=== PATIENT | male | born 2000 | race African-American/Black ===

== ENCOUNTER 2020-06-15 23:42 | Inpatient (IN) | payer OTHER ==
[~2020-06-15] VITALS: Ht 182.9 cm; Wt 54.0 kg
[2020-06-16] VITALS (11 sets, daily range): BP systolic 137–164; BP diastolic 66–94
[2020-06-16] MEDS ORDERED: COZAAR 25 MG TA25 M1 PO (00:05)
[2020-06-16] MEDS ORDERED: PROZAC40 MG PO (00:06)
[2020-06-16] MEDS ORDERED: CHLORTHALIDONE25 MG PO (00:06)
[2020-06-16 00:20] LABS: ABSOLUTE NEUTROPHILS 3.6 thou/uL (1.4-8.2); BASOPHILS 1.1 % (0.0-2.0); HEMATOCRIT 49.8 % (42.0-52.0); HEMOGLOBIN 16.3 gm/dL (14.0-18.0); LYMPHOCYTES 36.4 % (24.0-44.0); MCH 30.7 pg (26.0-34.0); MCHC 32.8 g/dL (28.0-37.0); MCV 93.8 fL (80.0-100.0); PLATELET COUNT 259 thou/uL (150-400); POLYS 50.5 % (36.0-66.0); RBC 5.31 mil/uL (4.50-6.00); RDW 13.8 % (10.5-14.5); WBC 7.1 thou/uL (4.0-11.0)
[2020-06-16 00:23] LABS: ANION GAP 11 mmol/L (7-16); BUN 16 mg/dL (7-18); CALCIUM 9.5 mg/dL (8.5-10.1); CHLORIDE 104 mmol/L (98-107); CO2 30 mmol/L (21-32); CREATININE 1.2 mg/dL (0.7-1.3); GLUCOSE 113 mg/dL (74-106); POTASSIUM 3.6 mmol/L (3.5-5.1); SODIUM 145 mmol/L (136-145)
[2020-06-16 00:30] LABS: ALBUMIN 4.7 g/dL (3.4-5.0); SALICYLATE < 2.8 mg/dL (2.8-20.0); SGOT 39 U/L (15-37); SGPT 82 U/L (30-65); TOTAL BILIRUBIN 0.2 mg/dL (0.2-1.0); TOTAL PROTEIN 8.9 g/dL (6.4-8.2)
[2020-06-16 00:52] LABS: URINE BILIRUBIN NEGATIVE (Negative); URINE BLOOD NEGATIVE (Negative); URINE CLARITY CLEAR; URINE COLOR YELLOW; URINE GLUCOSE-RANDOM* NEGATIVE (Negative); URINE KETONES TRACE (Negative); URINE LEUKOCYTES-REFLEX NEGATIVE (Negative); URINE NITRITE-REFLEX NEGATIVE (Negative); URINE PROTEIN (DIPSTICK) NEGATIVE (Negative); URINE SPECIFIC GRAVITY 1.025 (1.005-1.035)
[2020-06-16 00:59] LABS: AMP/METHAMP Negative (Negative); BARBITURATES Negative (Negative); BENZODIAZEPINES Negative (Negative); COCAINE Negative (Negative); METHADONE Negative (Negative); OPIATES Negative (Negative); PCP Negative (Negative)
--- NOTE | 2020-06-16 03:51 | NUR ---
PT NEW ADMIT FORM ED, FOR SUICIDE ATTEMPT AFTER OVERDOSE ON BENADRL. ALERT AND ORIENTED. A LITTLE TACHY ON THE MONITOR BUT VS. DENIES PAIN, CHEST PAINS NAUSEA OR VOMITING. SITTER IN THE ROOM. BED PADDED FOR SEIZURE PRECAUTIONS. CONSENT FORMS SIGNED. ADMISSION COMPLETE. WILL CONTINUE TO MONITOR AND FOLLOW POC.
[2020-06-16 08:08] LABS: ALBUMIN 3.3 g/dL (3.4-5.0); DIRECT BILIRUBIN 0.1 mg/dL (<0.1-0.2); TOTAL BILIRUBIN 0.3 mg/dL (0.2-1.0); TOTAL PROTEIN 6.4 g/dL (6.4-8.2)
--- NOTE | 2020-06-16 11:31 | NUR ---
DISCUSSED WITH BEDSIDE NURSE, CORETTA AND HAS SITTER. CARABALLO TO SEE THURSDAY. NO ANTICIPATED DC OVER THE WEEKEND.
--- NOTE | 2020-06-16 16:54 | NUR ---
PT CARE ASSUMED AT 0700. ASSESSMENTS CHARTED. MEDICATION CHARTED. COVID TESTING COMPLETE. LAC IV. SINUS TACHYCARDIA. UP AT ELBERT. PT IS CALM AND COOPERATIVE. SUICIDE ATTEMPT #25 - 25 MG BENEDRYL OVERDOSE.
[2020-06-17] VITALS (7 sets, daily range): BP systolic 153–164; BP diastolic 75–93
--- NOTE | 2020-06-17 04:23 | NUR ---
NO EVENTS OVERNIGHT. PT VITALS STABLE HR STABLE. DENIES PAIN. REPORTS TO ADHERE TO THE PLAN OF BEING HERE TILL THURSDAY. NO OTHER CONCERNS. SR ON THE MONITOR. WILL CONTINUE WITH POC.
[2020-06-17 13:56] LABS: AMP/METHAMP Negative (Negative); BARBITURATES Negative (Negative); BENZODIAZEPINES Negative (Negative); COCAINE Negative (Negative); METHADONE Negative (Negative); OPIATES Negative (Negative); PCP Negative (Negative)
--- NOTE | 2020-06-17 17:43 | NUR ---
PT CARE ASSUMED AT 0700. ASSESSMENTS CHARTED. MEDICATONS CHARTED. NORMAL SINUS RHYTHM. LAC IV D/C'D; INFILTRATE. LFA IV; NEW PLACEMENT. PT IS CALM AND WELL BEHAVED.
--- NOTE | 2020-06-18 05:06 | NUR ---
ASSESSMENT DOCUMENTED.PT BEEN RESTING IN NO ACUTE DISTRESS.A/OX4.VSS.DENIES ANY SUICIDAL IDEATION.PT ON 1:1 SUPERVISION.NO BEHAVIORAL ISSUES NOTED.POC IS TO SEE PSYCHIATRIST TODAY.WILL CONTINUE TO MONITOR PER POC.
[2020-06-18 07:24] VITALS: BP 133/82
--- NOTE | 2020-06-18 07:40 | EKG ---
[facility] [place] [address] [address] ELECTROCARDIOGRAM REPORT Name: MICHELLELEENA Room #: 208-P ADM IN M.R.#: [id number] Admission: 06/16/20 Attend Phys: Misti Plummer MD Discharge: Date of : 00 Report #: [id number] THIS REPORT FOR: cc: MADAN - No family physician/PCP FAM - No family physician/PCP Huy Carson MD [facility] THIS REPORT FOR: //name// 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: : 2000 Requested By: Kalin Stewart Order Number: [id number] MD: Huy Carson Measurements Intervals [place] Rate: 118 P: 58 AR: 168 QRS: 63 QRSD: 82 T: 248 QT: 375 QTc: 526 Interpretive Statements Sinus tachycardia LVH by voltage Abnormal T, probable ischemia, widespread Anterior ST elevation, probably due to LVH Prolonged QT interval No previous ECG available for comparison Electronically Signed On 06-18-2020 7:40:29 TENNIS PROFESSION[employer] by Huy Carson [email or web address] <ELECTRONICALLY SIGNED> By: Huy Carson MD, FACC 06/18/20 0740 0018 0018 Huy Carson MD, [facility] /EPI
[2020-06-18] MEDS ORDERED: METOPROLOL SUCC25 M1 PO (08:31)
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
--- NOTE | 2020-06-18 09:27 | 2DMMODE ---
[facility] [address] [place] [address] 2 D/M-MODE ECHOCARDIOGRAM Name: LEENA MARTINEZ Room #: 208-P ADM IN M.R.#: [id number] Admission: 06/16/20 Attend Phys: Misti Plummer MD Discharge: Date of : 00 Report #: [id number] THIS REPORT FOR: cc: FAM - No family physician/PCP FAM - No family physician/PCP Jose Roberto Kendrick MD ~ APPROVED REPORT Study performed: 06/18/2020 06:57:39 EXAM: Comprehensive 2D, Doppler, and color-flow Echocardiogram Patient Location: Bedside Room #: 208 Status: routine BSA: 1.71 HR: 65 bpm BP: 164/81 mmHg Rhythm: NSR Other Information Study Quality: Good Indications Elevated troponin. 2D Dimensions RVDd: 36.26 mm IVSd: 11.00 (7-11mm) LVOT Diam: 20.00 (18-24mm) LVDd: 37.00 mm PWd: 11.00 (7-11mm) Ascending Ao: 25.00 (22-36mm) LVDs: 26.00 (25-40mm) Aortic Root: 33.00 mm Volumes Left Atrial Volume (Systole) Single Plane 4CH: 30.95 mL Single Plane 2CH: 43.10 mL LA ESV Index: 23.00 mL/m2 Aortic Valve AoV Peak Jorge.: 0.97 m/s AO Peak Gr.: 3.79 mmHg LVOT Max P.32 mmHg LVOT Max V: 0.91 m/s LEXY Vmax: 2.95 cm2 [facility] [address] [address] 2 D/M-MODE ECHOCARDIOGRAM Name: LEENA MARTINEZ Room #: 208-P [facility] IN M.R.#: [id number] Admission: 06/16/20 Attend Phys: Nina Villa Discharge: Date of : 00 Report #: [id number] Mitral Valve E/A Ratio: 1.7 MV Decel. Time: 167.53 ms MV E Max Jorge.: 0.80 m/s MV A Jorge.: 0.48 m/s MV PHT: 48.58 ms IVRT: 69.20 ms Pulmonary Valve PV Peak Jorge.: 0.82 m/s PV Peak Gr.: 2.68 mmHg Pulmonary Vein P Vein S: 0.46 m/s P Vein A: 0.39 m/s P Vein D: 0.66 m/s P Vein A Dur.: 120.0 msec P Vein S/D Ratio: 0.70 Tricuspid Valve TR Peak Jorge.: 2.08 m/s RAP Estimate: 5.00 mmHg TR Peak Gr.: 17.27 mmHg PA Pressure: 22.00 mmHg Left Ventricle The left ventricle is normal size. There is normal LV segmental wall motion. There is normal left ventricular wall thickness. Left ventricular systolic function is normal. LVEF is 60-65%. The left ventricular diastolic function is normal. Right Ventricle The right ventricle is normal size. The right ventricular systolic function is normal. Atria The left atrium size is normal. The right atrium size is normal. Aortic Valve The aortic valve is normal in structure. No aortic regurgitation is present. There is no aortic valvular stenosis. Mitral Valve The mitral valve is normal in structure. There is no mitral valve regurgitation noted. No evidence of mitral valve stenosis. Tricuspid Valve The tricuspid valve is normal in structure. Trace tricuspid regurgitation. Estimated PAP is 20-25mmHg. [facility] [address] [place] [address] 2 D/M-MODE ECHOCARDIOGRAM Name: MARTINEZLEENA Room #: 208-P ADM IN M.R.#: [id number] Admission: 06/16/20 Attend Phys: Nina Villa Discharge: Date of : 00 Report #: [id number] Pulmonic Valve The pulmonary valve is normal in structure. Trace pulmonic regurgitation. Great Vessels The aortic root is normal in size. The ascending aorta is normal in size. IVC is normal in size and collapses >50% with inspiration. Pericardium There is no pericardial effusion. <Conclusion> The left ventricle is normal size. LVEF is 60-65%. The aortic valve is normal in structure. The mitral valve is normal in structure. The tricuspid valve is normal in structure. Trace tricuspid regurgitation. Estimated PAP is 20-25mmHg. The pulmonary valve is normal in structure. Trace pulmonic regurgitation. There is no pericardial effusion. <ELECTRONICALLY SIGNED> By: Jose Roberto Kendrick MD 06/18/20926 6 6 Jose Roberto Kendrick MD /INF
[2020-06-18 12:13] VITALS: BP 127/84
[2020-06-18 16:56] VITALS: BP 116/67
[2020-06-18 17:08] LABS: HEMATOCRIT 45.4 % (42.0-52.0); HEMOGLOBIN 15.2 gm/dL (14.0-18.0); MCH 31.5 pg (26.0-34.0); MCHC 33.4 g/dL (28.0-37.0); MCV 94.2 fL (80.0-100.0); RBC 4.82 mil/uL (4.50-6.00); RDW 13.9 % (10.5-14.5); WBC 5.9 thou/uL (4.0-11.0)
[2020-06-18 17:18] LABS: CALCIUM 9.3 mg/dL (8.5-10.1); CREATININE 0.9 mg/dL (0.7-1.3); POTASSIUM 4.2 mmol/L (3.5-5.1)
--- NOTE | 2020-06-18 17:48 | NUR ---
Patient admits with SI/overdose. Patient has reported attemts in past. Patient in process of enrolling into intensive outpatient therapy program 3 hour program. Sp with Marlene at [facility]. She plans to call patient to complete enrollment in program. Dr Tam assessed patient and need for inpatient psych treatment. dc maintenance planner faxed clinical [facility]. [facility] called and reviewing clinical they wanted updated labs. They also wanted EKG and ECHO reports. Faxed clinical information. [facility] at capacity. [facility] no bed, [facility] reviewing. At this time no acceptance. Updated RN.
[2020-06-18 19:29] VITALS: BP 166/93
--- NOTE | 2020-06-19 03:49 | NUR ---
Assumed pt care at 1900. Pt is alert and oriented. No sign of distress noted in pt. Sitter at bedside. Denies any pain. Assessment completed and documented. Pt is ambulatory. No acute events overnight. Continue to monitor. No further needs at this time. Pending transfer.
[2020-06-19 04:54] VITALS: BP 110/74
[2020-06-19 09:15] VITALS: BP 128/71
--- NOTE | 2020-06-19 12:11 | NUR ---
AAOX4. CALM, COOPERATIVE. SITTER AT BEDSIDE. SR PER TELE. WILL CONTINUE TO MONITOR.
[2020-06-19 12:32] VITALS: BP 131/82
--- NOTE | 2020-06-19 14:49 | NUR ---
Nutrition: pt admitted following Suicide attempt-diphenhydramine OD. PMH: suicide attempt, HTN, anxiety. Assessed due to BMI 16.2, underweight status. Pt reports this is normal weight for him, has always been tall and thin. Eating 100% of meals on regular diet. Agrees to ensure BID as would like to try and gain weight. RD encouraged using between meals and continue at home. Low nutrition risk.
--- NOTE | 2020-06-19 14:59 | NUR ---
[facility]ERR[facility] RECEIVED REFERRAL AND THEY DO NOT HAVE ANY BEDS AVAILABLE. ALSO REFAXED TO [facility] RECEIVED CONFIRMATION AND TO [facility] RECEIVED CONFIRMATION. SW TO F/U WITH FACILITIES.
--- NOTE | 2020-06-19 16:18 | NUR ---
REACHED OUT TO [facility] NO BEDS, [facility] NO BEDS. HAVEN'T HEARD BACK FROM DANAE OR SIGNITURE OF THIS NOTE. CM TO FOLLOW UP. CM RECEIVED VM FROM MARLENY KAMARA . CM CONTINUEING TO TRY TO FIND INPATIENT PSYC PLACEMENT.
[2020-06-19 20:33] VITALS: BP 116/57
--- NOTE | 2020-06-20 04:27 | NUR ---
Assumed pt care at 1900. No sign of distress noted in pt. Denies any pain. Pt is alert and oriented. Sitter at bedside. Assessment completed and documented. Pt is ambulatory. No acute events overnight. Pending placement. Contiune to monitor pt. No further needs at this time.
[2020-06-20 06:05] VITALS: BP 114/52
[2020-06-20 08:49] VITALS: BP 149/79
--- NOTE | 2020-06-20 09:36 | NUR ---
PT ALERT AND ORIENTED TIMES FOUR. VSS, 1:1 REMAINS AT BEDSIDE. PT DENIES SI/HI/AH/VH. PT TOLERATES MEDS AND MEALS. PT UP AB ELBERT WITH STADY GAIT. WILL CONTINUE TO MONITOR.
--- NOTE | 2020-06-20 10:15 | NUR ---
Cont to inquire into psych placement. [facility] no beds today. [facility] requests call back later to determine their staffing. [facility] possible bed, [facility] will review.
--- NOTE | 2020-06-20 15:59 | NUR ---
FAXED REFERRAL TO [facility] RECEIVED CONFIRMATION AND LEFT MSG WITH JAYLIN IN ADM. DP TO FOLLOW.
--- NOTE | 2020-06-20 16:44 | NUR ---
[facility] with no beds avail. [facility] reviewing sent updated progress notes. Sp with [facility] they are at capacity. Called [facility] and left message.
[2020-06-20] MEDS ORDERED: DIAZEPAM 2MG TAB2 MG PO (17:32)
[2020-06-20 18:02] VITALS: BP 144/71
--- NOTE | 2020-06-20 18:24 | NUR ---
Spoke with [facility] who has a bed avail for inpatient treatment for psych treatment. Patient agreeable to transfer. Signed EMtalla form [facility] for 1699. Chart copied. Notified mom of dc transfer. RN called report no further needs.
== END 2020-06-20 22:10 | DRG 918 ==
LOC: ER 23:42 → EROBS 06-16 01:30 → 2N 06-16 01:59
PROVIDERS: Emergency Medicine; Nurse Practitioner Family; ADMIT Hospitalist; ATTEND Hospitalist
DX: T45.0X2A Poisoning by antiallergic and antiemetic drugs, intentional self-harm, initial encounter (principal); R45.851 Suicidal ideations; I10 Essential (primary) hypertension; F41.9 Anxiety disorder, unspecified; R00.0 Tachycardia, unspecified; R77.8 Other specified abnormalities of plasma proteins; F32.9 Major depressive disorder, single episode, unspecified; F43.10 Post-traumatic stress disorder, unspecified; Z20.828 Contact with and (suspected) exposure to other viral communicable diseases; Y92.89 Other specified places as the place of occurrence of the external cause; Z79.899 Other long term (current) drug therapy
CPT/HCPCS: 10081

== ENCOUNTER 2021-01-15 20:18 | Emergency (ER) | payer OTHER ==
[~2021-01-15] VITALS: Ht 182.9 cm; Wt 52.6 kg
[~2021-01-15 20:18] MED LIST: CHLORTHALIDONE25 MG PO; COZAAR 25 MG TA25 M1 PO; DIAZEPAM 2MG TAB2 MG PO; METOPROLOL SUCC25 M1 PO; PROZAC40 MG PO
[2021-01-15 20:37] LABS: ABSOLUTE NEUTROPHILS 2.7 thou/uL (1.4-8.2); BASOPHILS 1.1 % (0.0-2.0); EOSINOPHILS 6.2 % (0.0-3.0); MCH 30.9 pg (26.0-34.0); WBC 5.3 thou/uL (4.0-11.0)
[2021-01-15 20:39] LABS: HEMATOCRIT 46.6 % (42.0-52.0); HEMOGLOBIN 15.6 gm/dL (14.0-18.0); LYMPHOCYTES 29.3 % (24.0-44.0); MCHC 33.5 g/dL (28.0-37.0); MCV 92.3 fL (80.0-100.0); MONOCYTES 11.4 % (1.0-8.0); PLATELET COUNT 262 thou/uL (150-400); RBC 5.05 mil/uL (4.50-6.00); RDW 14.3 % (10.5-14.5)
[2021-01-15 20:47] LABS: AMP/METHAMP Negative (Negative); BARBITURATES Negative (Negative); BENZODIAZEPINES Negative (Negative); COCAINE Negative (Negative); METHADONE Negative (Negative); OPIATES Negative (Negative); PCP Negative (Negative)
[2021-01-15 20:49] LABS: CALCIUM 9.4 mg/dL (8.5-10.1); POTASSIUM 3.4 mmol/L (3.5-5.1)
[2021-01-16 01:48] LABS: URINE BILIRUBIN NEGATIVE (Negative); URINE BLOOD NEGATIVE (Negative); URINE CLARITY CLEAR; URINE COLOR YELLOW; URINE GLUCOSE-RANDOM* NEGATIVE (Negative); URINE KETONES NEGATIVE (Negative); URINE LEUKOCYTES-REFLEX NEGATIVE (Negative); URINE NITRITE-REFLEX NEGATIVE (Negative); URINE PROTEIN (DIPSTICK) NEGATIVE (Negative); URINE SPECIFIC GRAVITY 1.015 (1.005-1.035)
--- NOTE | 2021-01-16 07:13 | EKG ---
[address] [place] [address] ELECTROCARDIOGRAM REPORT Name: LEENA MARTINEZ Room #: REG ARTURO Song#: [id number] Admission: 01/15/21 Attend Phys: Discharge: Date of : 00 Report #: [id number] [facility] ED Test Date: 2021-01-16 Test Time: 01:43:38 Pat Name: LEENA MARTINEZ Department: Room: Gender: M Supervisor Electronic Coils: mpalorri : 2000 Requested By: Jose Luis Brasher Order Number: [id number] MD: Frankie Wang Measurements Intervals [place] Rate: 70 P: 36 [place]: 148 QRS: 77 QRSD: 81 T: 42 QT: 353 QTc: 381 Interpretive Statements Sinus rhythm Borderline T wave abnormalities Borderline ST elevation, inferior leads Compared to ECG 06/16/2020 00:18:12 Sinus tachycardia no longer present Left ventricular hypertrophy no longer present Possible ischemia no longer present Prolonged QT interval no longer present T-wave abnormality still present ST (T wave) deviation still present Electronically Signed On 01-16-2021 7:13:34 CDT by Frankie Wang [email or web address] <ELECTRONICALLY SIGNED> By: Frankie Wang MD, [facility] 01/16/21 0713 014 0143 Frankie Wang MD, [facility] /EPI
[2021-01-16 09:40] VITALS: BP 144/101
== END 2021-01-16 09:41 ==
LOC: ER 20:18
PROVIDERS: Emergency Medicine
DX: T46.5X2A Poisoning by other antihypertensive drugs, intentional self-harm, initial encounter (principal); Z20.822 Contact with and (suspected) exposure to COVID-19; R45.851 Suicidal ideations; I10 Essential (primary) hypertension; F32.9 Major depressive disorder, single episode, unspecified; Y92.89 Other specified places as the place of occurrence of the external cause

== ENCOUNTER 2021-04-03 23:24 | Emergency (ER) | payer OTHER ==
[~2021-04-03] VITALS: Ht 182.9 cm; Wt 54.4 kg
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
[2021-04-03] MEDS ORDERED: ABILIFY10 MG PO (23:42)
[2021-04-03 23:58] LABS: ANION GAP 10 mmol/L (7-16); BUN 16 mg/dL (7-18); CALCIUM 8.7 mg/dL (8.5-10.1); CHLORIDE 105 mmol/L (98-107); CO2 26 mmol/L (21-32); CREATININE 1.1 mg/dL (0.7-1.3); GLUCOSE 162 mg/dL (74-106); POTASSIUM 3.8 mmol/L (3.5-5.1); SODIUM 141 mmol/L (136-145)
[2021-04-04 00:04] LABS: ALBUMIN 3.8 g/dL (3.4-5.0); SALICYLATE < 2.8 mg/dL (2.8-20.0); SGOT 26 U/L (15-37); SGPT 51 U/L (16-63); TOTAL BILIRUBIN 0.3 mg/dL (0.2-1.0); TOTAL PROTEIN 7.2 g/dL (6.4-8.2)
[2021-04-04 01:34] LABS: ABSOLUTE NEUTROPHILS 3.3 thou/uL (1.4-8.2); EOSINOPHILS 2.4 % (0.0-3.0); HEMATOCRIT 40.3 % (42.0-52.0); HEMOGLOBIN 13.6 gm/dL (14.0-18.0); LYMPHOCYTES 27.5 % (24.0-44.0); MCH 30.9 pg (26.0-34.0); MCHC 33.9 g/dL (28.0-37.0); MCV 91.3 fL (80.0-100.0); PLATELET COUNT 194 thou/uL (150-400); POLYS 59.1 % (36.0-66.0); RBC 4.41 mil/uL (4.50-6.00); RDW 14.5 % (10.5-14.5); WBC 5.5 thou/uL (4.0-11.0)
[2021-04-04 01:37] LABS: URINE BILIRUBIN NEGATIVE (Negative); URINE BLOOD NEGATIVE (Negative); URINE CLARITY CLEAR; URINE COLOR YELLOW; URINE GLUCOSE-RANDOM* NEGATIVE (Negative); URINE KETONES NEGATIVE (Negative); URINE LEUKOCYTES-REFLEX NEGATIVE (Negative); URINE NITRITE-REFLEX NEGATIVE (Negative); URINE PROTEIN (DIPSTICK) NEGATIVE (Negative); URINE SPECIFIC GRAVITY 1.025 (1.005-1.035); URINE UROBILINOGEN 0.2 E.U./dl (0.2-1.0)
[2021-04-04 01:48] LABS: AMP/METHAMP Negative (Negative); BARBITURATES Negative (Negative); BENZODIAZEPINES Negative (Negative); COCAINE Negative (Negative); METHADONE Negative (Negative); OPIATES Negative (Negative); PCP Negative (Negative)
--- NOTE | 2021-04-04 07:18 | EKG ---
[place] [address] [facility] 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: judy : 2000 Requested By: Luis Antonio Espino Order Number: [id number] MD: Frankie Wang Measurements Intervals [place] Rate: 68 P: 30 SD: 157 QRS: 70 QRSD: 83 T: 10 QT: 377 QTc: 401 Interpretive Statements Sinus rhythm LVH by voltage Abnormal T, consider ischemia, diffuse leads Borderline ST elevation, inferior leads Baseline wander in lead(s) V5,V6 Compared to ECG 01/16/2021 01:43:38 Left ventricular hypertrophy now present Possible ischemia now present T-wave abnormality still present ST (T wave) deviation still present Electronically Signed On 04-04-2021 7:18:41 CDT by Frankie Wang [email or web address] <ELECTRONICALLY SIGNED> By: Frankie Wang MD, FAC 04/04/21 0718 0046 0046 Frankie Wang MD, [facility] /EPI
[2021-04-04 15:00] VITALS: BP 125/73
== END 2021-04-04 15:00 ==
LOC: ER 23:24
PROVIDERS: Emergency Medicine
DX: T14.91XA Suicide attempt, initial encounter (principal); Z20.822 Contact with and (suspected) exposure to COVID-19; T50.992A Poisoning by other drugs, medicaments and biological substances, intentional self-harm, initial encounter; F32.9 Major depressive disorder, single episode, unspecified; I10 Essential (primary) hypertension; Z91.5 Personal history of self-harm; Z79.899 Other long term (current) drug therapy; Y92.89 Other specified places as the place of occurrence of the external cause